=== PATIENT | female | born 1960 | race Caucasian/White ===

== ENCOUNTER 2019-08-15 13:57 | Emergency (ER) | payer OTHER ==
[~2019-08-15] VITALS: Ht 165.1 cm; Wt 67.1 kg
[~2019-08-15 13:57] MED LIST: TRAMODOL
[2019-08-15 15:00] VITALS: BP 112/73
[2019-08-15] MEDS ORDERED: KETOROLAC TROMETH 60MG/2ML VIAL IM ONE (18:45)
== END 2019-08-15 19:06 | disposition home or self-care (01) ==
LOC: ER 13:57
DX: G43.909 Migraine, unspecified, not intractable, without status migrainosus (principal)
CPT/HCPCS: 70450; 96372; 99284; J1885

== ENCOUNTER 2023-01-05 15:09 | Emergency (ER) | payer BC, MEDICAID ==
[~2023-01-05] VITALS: Ht 165.1 cm; Wt 45.0 kg
[2023-01-05 15:43] VITALS: BP 158/79
[2023-01-05] MEDS ORDERED: TRAZ1TAB12 PO (18:37)
[2023-01-05] MEDS ORDERED: VENL150C58 PO (18:37)
== END 2023-01-05 19:07 | disposition home or self-care (01) ==
LOC: ER 15:09
DX: F32.9 Major depressive disorder, single episode, unspecified (principal); F41.9 Anxiety disorder, unspecified; Z76.0 Encounter for issue of repeat prescription

== ENCOUNTER 2024-04-11 13:52 | Emergency (ER) | payer MEDICAID ==
[~2024-04-11] VITALS: Ht 165.1 cm; Wt 65.9 kg
[~2024-04-11 13:52] MED LIST changes: +TRAZ1TAB12 PO; +VENL150C58 PO
[2024-04-11 14:47] VITALS: TEMP 98; O2SAT 95
[2024-04-11] MEDS ORDERED: TETANUS-DIPTH-ACEL PERTUSSIS 0.5ML SYR Tdap IM ONE (16:00)
[2024-04-11] MEDS ORDERED: CEPH500C PO (16:04)
[2024-04-11] MEDS ORDERED: IBUP1TAB5 PO (16:04)
[2024-04-11 16:23] VITALS: BP 107/64; PULSE 80; RESP 18
[2024-04-11] MEDS: MORPHINE SULFATE 4 MG/ML SYR/VIAL IV ONE (16:23)
[2024-04-11] MEDS: cefTRIAXone SOD 1,000 MG VL IV ONE (16:24)
[2024-04-11] MEDS: KETOROLAC TROMETH 30 MG/ML 1ML VIAL IV ONE (17:00)
[2024-04-11] MEDS: BACITRACIN TOP OINT 1 UD PKG TOP ONE (17:01)
== END 2024-04-11 17:35 | disposition home or self-care (01) ==
LOC: ER 13:52
DX: L03.115 Cellulitis of right lower limb (principal); L02.611 Cutaneous abscess of right foot; F41.9 Anxiety disorder, unspecified; F32.A Depression, unspecified; Z85.3 Personal history of malignant neoplasm of breast
CPT/HCPCS: 10060; 73650; 90471; 90715; 96374; 96375; 99284; J0696; J1885; J2270

== ENCOUNTER 2024-05-15 05:16 | Emergency (ER) | payer MEDICAID ==
[~2024-05-15] VITALS: Ht 165.1 cm; Wt 64.3 kg
[~2024-05-15 05:16] MED LIST changes: +CEPH500C PO; +IBUP1TAB5 PO
[2024-05-15 06:08] LABS: Basophils # (auto) 0 10 ^3/uL (0-0.2); Basophils % (auto) 0.3 % (0.0-2.0); Eosinophils # (auto) 0.2 10 ^3/uL (0-0.8); Eosinophils % (auto) 2.5 % (0.0-7.0); Hematocrit 43.5 % (36.0-46.0); Hemoglobin 14.7 g/dL (12.2-16.2); Lymphocytes # (auto) 2.7 10 ^3/uL (0.4-5.4); Lymphocytes % (auto) 33.2 % (10.0-50.0); Mean Corpuscular Hemoglobin 30.9 pg (28.0-32.0); Mean Corpuscular Hgb Conc. 33.7 g/dL (32.0-36.0); Mean Corpuscular Volume 91.8 fL (80.0-100.0); Monocytes # (auto) 0.5 10 ^3/uL (0-1.3); Monocytes % (auto) 6.6 % (0.0-12.0); Neutrophils # (auto) 4.6 10 ^3/uL (1.6-8.6); Neutrophils % (auto) 57.4 % (37.0-80.0); Nucleated Red Blood Cells % 0.1 %; Red Blood Cells 4.74 10^6/uL (4.0-5.20); Red Cell Distribution Width 13.9 % (11.8-14.3)
[2024-05-15 06:31] LABS: Alanine Aminotransferase 19 U/L (7-40); Alkaline Phosphatase 97 U/L (46-116); Calcium 10.7 mg/dL (8.7-10.4); Carbon Dioxide 28 mmol/L (20-30); Chloride 110 mmol/L (98-107); Glucose 89 mg/dL (74-106); Potassium 3.8 mmol/L (3.5-5.1)
[2024-05-15 06:32] LABS: Albumin 4.2 g/dL (3.2-4.8); Anion Gap 2 (5-15); Aspartate Aminotransferase 14 U/L (13-40); BUN/Creatinine Ratio 22.6 (10.0-20.0); Bilirubin, Total 0.4 mg/dL (0.2-1.0); Blood Urea Nitrogen 14 mg/dL (9-23); Sodium 140 mmol/L (136-145); Total Protein 6.7 g/dL (5.7-8.2)
[2024-05-15 08:20] VITALS: BP 139/84; TEMP 98.5
[2024-05-15] MEDS: SODIUM CHLORIDE 0.9% 1,000 ML IV ONE (08:25)
[2024-05-15] MEDS: IPRATROPIUM BROM 0.5 MG/2.5ML INH SOL NEB ONE (08:31)
[2024-05-15] MEDS: ALBUTEROL SULF 2.5 MG/0.5ML(0.5%) NEB SOLN NEB ONE (08:31)
[2024-05-15 08:34] LABS: Urine Bacteria FEW /hpf (None Seen); Urine Blood Negative /uL (Negative); Urine Clarity Clear (Clear); Urine Color Yellow (Yellow); Urine Mucus FEW (None Seen); Urine Protein, UAD Negative (Negative); Urine Specific Gravity 1.024 (1.001-1.035); Urine Urobilinogen Normal (Negative); Urine WBC 1 /hpf (0 - 5)
[2024-05-15] MEDS: KETOROLAC TROMETH 30 MG/ML 1ML VIAL IV ONE (08:49)
[2024-05-15] MEDS: AZITHROMYCIN 500MG/ 250ML 250 ML IV ONE (08:50)
[2024-05-15 08:56] VITALS: PULSE 81; RESP 18; O2SAT 95
[2024-05-15] MEDS: IOHEXOL 350 MG/ML 100ML IJ ONE (09:51)
[2024-05-15] MEDS ORDERED: ALBUAER3 IN (11:47)
[2024-05-15] MEDS ORDERED: CEFD300C2 PO (11:47)
[2024-05-15] MEDS ORDERED: DICL50TA2 PO (11:48)
[2024-05-15] MEDS: cefTRIAXone 1GM/50ML D5W 50 ML IV ONE (11:56)
[2024-05-15] MEDS: cefTRIAXone SOD 1,000 MG VL IM ONE (11:59)
== END 2024-05-15 12:04 | disposition home or self-care (01) ==
LOC: ER 05:16
DX: J18.9 Pneumonia, unspecified organism (principal); R07.81 Pleurodynia; J44.1 Chronic obstructive pulmonary disease with (acute) exacerbation; N39.0 Urinary tract infection, site not specified; F17.210 Nicotine dependence, cigarettes, uncomplicated; F41.9 Anxiety disorder, unspecified; F32.A Depression, unspecified; Z90.710 Acquired absence of both cervix and uterus; Z98.51 Tubal ligation status; Z85.3 Personal history of malignant neoplasm of breast
CPT/HCPCS: 36415; 71045; 71275; 80053; 81001; 83735; 83880; 84484; 85025; 85379; 93005; 94640; 96365; 96366; 96372; 96375; 99285; J0456; J0696; J1885; J7030; J7644; Q9967

== ENCOUNTER 2025-05-11 06:18 | Emergency (ER) | payer MEDICAID ==
[~2025-05-11] VITALS: Ht 165.1 cm; Wt 71.0 kg
[~2025-05-11 06:18] MED LIST changes: +ALBUAER3 IN; +CEFD300C2 PO; +DICL50TA2 PO
--- NOTE | 2025-05-11 06:53 | ED.PDOC ---
SOB-HPI HPI Comments 64-year-old female presents with a chief complaint of cough, fatigue, and SOB x 3 days. Patient states that her cough has been productive with green mucus. Patient states that she smokes cigarettes and is diagnosed with COPD. Patient also endorses feeling fatigued as well. Patient is hypotensive and sating at 87% on room air. Chief Complaint: Shortness of Breath Time Seen by MD: 06:33 Primary Care Provider: ALWAYS Reviewed notes: Medications, Allergies Information Source: Patient Mode of Arrival: Ambulatory Severity: Moderate Timing: Days Duration: Since onset Context: At Rest PE Risk Factors: None History of: COPD Prehospital treatment: None Associated Signs and Symptoms: Wheeze, Cough If cough with SOB: Non-Productive Past Medical History PAST MEDICAL HISTORY: Anxiety, Cancer, Depression Surgical History: Hysterectomy, Tubal Ligation CNA PER DIEM History: No Pertinent CNA PER DIEM History Family History Family History: Reviewed,noncontributory to illness, No family hx of Cancer, No family hx of DM, No family hx of Heart cain, No family hx of HTN, No family hx ofKidney cain, No family hx of Liver cain, No family hx of Lung cain, No family hx of Stroke Social History Smoker: Cigarettes Alcohol: Denies ETOH Use Drugs: Other Lives In: Home Constitutional: reports: fatigue; denies: chills, diaphoresis, fever, malaise, sweats, weakness, others EENTM: denies: blurred vision, double vision, ear bleeding, ear discharge, ear drainage, ear pain, ear ringing, eye pain, eye redness, hearing loss, mouth pain, mouth swelling, nasal discharge, nose bleeding, nose congestion, nose pain, photophobia, tearing, throat pain, throat swelling, voice changes, others Respiratory: reports: cough, shortness of breath; denies: hemoptysis, orthopnea, SOB at rest, SOB with excertion, stridor, wheezing, others Cardiovascular: denies: chest pain, dizzy spells, diaphoresis, Dyspnea on exertion, edema, irregular heart beat, left arm pain, lightheadedness, pa lpitations, PND, syncope, others Gastrointestinal: denies: abdomen distended, abdominal pain, blood streaked bowels, constipated, diarrhea, dysphagia, difficulty swallowing, hematemesis, melena, nausea, poor appetite, poor fluid intake, rectal bleeding, rectal pain, vomiting, others Genitourinary: denies: abnormal vagina bleeding, burning, dyspareunia, dysuria, flank pain, frequency, hematuria, incontinence, pain, , vagina discharge, urgency, others Neurological: denies: dizziness, fainting, headache, left sided numbness, left sided weakness, numbness, paresthesia, pre-existing deficit, right sided numbness, right sided weakness, seizure, speech problems, tingling, tremors, weakness, others Musculoskeletal: denies: back pain, gout, joint pain, joint swelling, muscle pain, muscle stiffness, neck pain, others Integumetry: denies: bruises, change in color, change in hair/nails, dryness, laceration, lesions, lumps, rash, wounds, others Allergic/Immunocompromised: denies: Difficulty Healing, Frequent Infections, Hives, Itching, others Hematologic/Lymphatic: denies: anemia, blood clots, easy bleeding, easy bruising, swollen glands, others Endocrine: denies: excessive hunger, excessive sweating, excessive thirst, excessive urination, flushing, intolerance to cold, intolerance to heat, unexplained weight gain, unexplained weight loss, others Psychiatric: denies: anxiety, bipolar disorder, depression, hopeless, panic disorder, schizophrenia, sleepless, suicidal, others All Other Systems: Reviewed and Negative Physical Exam General Appearance: Moderate Distress, Normal HEENT: Normal ENT Inspection, Pharynx Normal, TMs Normal Neck: Full Range of Motion, Non-Tender, Normal, Normal Inspection Respiratory: Accessory Muscle Use, Chest Non-Tender, Wheezing Cardiovascular: No Edema, No JVD, No Murmur, No Gallop, Normal Peripheral Pulses, Regular Rate/Rhythm Breast Exam: Deferred Gastrointestinal: No Organomegaly, Non Tender, No Pulsatile Mass, Normal Bowel Sounds, Soft Genitalia: Deferred Pelvic: Deferred Rectal: Deferred Extremities: No calf tenderness, Normal capillary refill, Normal inspection, Normal range of motion, Non-tender, No pedal edema Musculoskeletal : Apperance: Normal Neurologic: Alert, ear nose throat surgeon II-XII nml as Tested, No Motor Deficits, Normal Affect, Normal Mood, No Sensory Deficits Cerebellar Function: NOT DONE Reflexes: NOT DONE Skin: Dry, Normal Color, Warm Peripheral Pulses: 3+ Radial (R), 3+ Radial (L) Lymphatic: No Adenopathy Was a procedure done? Was a procedure done?: No Differential Dx Differential Diagnosis: Anxiety, Asthma, Bronchitis, CHF, COPD X-Ray, Labs, Meds, VS Vital Signs Date Time Temp Pulse Resp B/P (MAP) Pulse Ox O2 Delivery O2 Flow Rate FiO2 05/11/25 06:36 97.8 83 20 94/68 (77) 88 97.8 Lab Test 05/11/25 06:43 Range/Units White Blood Count 17.2 H 4.4-10.8 10^3/uL Red Blood Count 4.55 4.0-5.20 10^6/uL Hemoglobin 14.8 12.2-16.2 g/dL Hematocrit 42.7 36.0-46.0 % Mean Corpuscular Volume 93.8 80.0-100.0 fL Mean Corpuscular Hemoglobin 32.5 H 28.0-32.0 pg Mean Corpuscular Hemoglobin Concent 34.6 32.0-36.0 g/dL Red Cell Distribution Width 12.5 11.8-14.3 % Platelet Count 243 140-450 10^3/uL Mean Platelet Volume 7.9 6.9-10.8 fL Neutrophils (%) (Auto) 81.5 H 37.0-80.0 % Lymphocytes (%) (Auto) 11.4 10.0-50.0 % Monocytes (%) (Auto) 6.1 0.0-12.0 % Eosinophils (%) (Auto) 0.5 0.0-7.0 % Basophils (%) (Auto) 0.5 0.0-2.0 % Neutrophils # (Auto) 14.0 H 1.6-8.6 10 ^3/uL Lymphocytes # (Auto) 2.0 0.4-5.4 10 ^3/uL Monocytes # (Auto) 1.1 0-1.3 10 ^3/uL Eosinophils # (Auto) 0.1 0-0.8 10 ^3/uL Basophils # (Auto) 0.1 0-0.2 10 ^3/uL Nucleated Red Blood Cells 0.1 % Sodium Level Pending Potassium Level Pending Chloride Level Pending Carbon Dioxide Level Pending Anion Gap Pending Blood Urea Nitrogen Pending Creatinine Pending Glomerular Filtration Rate Calc Pending BUN/Creatinine Ratio Pending Serum Glucose Pending Calcium Level Pending Troponin I High Sensitivity Pending Current Medications Medications (Trade) Dose Ordered Sig/Mil Route Start Time Stop Time Status Last Admin Methylprednisolone Sodium Succinate (Solu Medrol) 125 mg ONCE ONCE IV 05/11/25 06:45 05/11/25 06:46 DC 05/11/25 06:59 Albuterol (Ventolin Medneb) 5 mg ONCE ONCE NEB 05/11/25 06:45 05/11/25 06:46 DC 05/11/25 06:54 Ipratropium [place] (Atrovent Medneb) 0.5 mg ONCE ONCE NEB 05/11/25 06:45 05/11/25 06:46 DC 05/11/25 06:54 Magnesium Sulfate/ Dextrose 100 ml @ 100 mls/hr ONCE ONCE IV 05/11/25 06:45 05/11/25 07:44 05/11/25 06:58 Patient alert. Complaining of shortness a breath. Vitals stable. Answering questions. Was given steroid. Was given breathing treatment. WBC elevated pain Hemoglobin within normal limits. Hypotensive. Possible sepsis. Establish intravenous access. Was given fluids. Was given Rocephin. Was given azithromycin. Sepsis protocol. Time of 1ST Reevaluation: 07:03 Reevaluation 1ST: Unchanged Patient Education/Counseling: Diagnosis, Treatment, Prognosis Family Education/Counseling: No Family Present SEPSIS Sepsis Screen Date sepsis recognized/suspect: May 11, 2025 Time Sepsis recognized/suspect: 620 Recent Procedure: No On Antibiotic Therapy: No Respiratory Rate >20: No Heart Rate >90: No Temp<36 C (96.8 F) or >38.3 C: No SBP <90 or MAP <65 mmHG: No New Acute Mental Status Change: No Is the patient on CPAP, BIPAP,: No Physician Orders Troponin-I Hs (05/11/25 06:34) Chest Portable (05/11/25 06:34) Urinalysis (05/11/25 06:34) Basic Metabolic Panel (05/11/25 06:34) Magnesium Sulfate 1gm/100ml (05/11/25 06:45) Vital Signs Date Time Temp Pulse Resp B/P (MAP) Pulse Ox O2 Delivery O2 Flow Rate FiO2 05/11/25 06:36 97.8 83 20 94/68 (77) 88 97.8 Laboratory Tests Test 05/11/25 06:43 White Blood Count 17.2 10^3/uL (4.4-10.8) H Medications Medications Dose Ordered Sig/Mil Route Start Time Stop Time Status Last Admin Dose Admin Albuterol 5 mg ONCE ONCE NEB 05/11/25 06:45 05/11/25 06:46 DC 05/11/25 06:54 Ipratropium [place] 0.5 mg ONCE ONCE NEB 05/11/25 06:45 05/11/25 06:46 DC 05/11/25 06:54 Magnesium Sulfate/ Dextrose 100 ml @ 100 mls/hr ONCE ONCE IV 05/11/25 06:45 05/11/25 07:44 05/11/25 06:58 Methylprednisolone Sodium Succinate 125 mg ONCE ONCE IV 05/11/25 06:45 05/11/25 06:46 DC 05/11/25 06:59 Departure 1 Departure Time of Disposition: 07:16 Impression: Primary Impression: Acute respiratory failure Qualified Codes: J96.01 - Acute respiratory failure with hypoxia Additional Impression: Pneumonitis Disposition: ADMITTED INPATIENT Admit to: Med Surg Condition: Guarded Critical Care Note Critical Care Time?: Yes (90 min-critical care time only) Critical care comment: Placed on oxygen Stability Stability form required: No Heart Score Heart Score: Heart Score Response (Comments) Value History N/A 0 EKG N/A 0 Age N/A 0 Risk Factors N/A 0 Troponin N/A 0 Total 0 I personally scribed for EDWARD YOO MD ([email or web address]) on 05/11/25 at 06:53. Electronically submitted by Serafin Aldridge ([email or web address]). EDWARD YOO MD May 11, 2025 06:53
[2025-05-11] MEDS: IPRATROPIUM BROM 0.5 MG/2.5ML INH SOL NEB ONE (06:54)
[2025-05-11] MEDS: ALBUTEROL SULF 2.5 MG/0.5ML(0.5%) NEB SOLN NEB ONE (06:54)
[2025-05-11] MEDS: MAGNESIUM SULFATE 1GM/100ML 100 ML IV ONE (06:58)
[2025-05-11] MEDS: methylPREDNISolone SOD SUCC 125 MG/2 ML VL IV ONE (06:59)
[2025-05-11 07:04] LABS: Basophils # (auto) 0.1 10 ^3/uL (0-0.2); Basophils % (auto) 0.5 % (0.0-2.0); Eosinophils # (auto) 0.1 10 ^3/uL (0-0.8); Eosinophils % (auto) 0.5 % (0.0-7.0); Hematocrit 42.7 % (36.0-46.0); Hemoglobin 14.8 g/dL (12.2-16.2); Lymphocytes % (auto) 11.4 % (10.0-50.0); Mean Corpuscular Hemoglobin 32.5 pg (28.0-32.0); Mean Corpuscular Hgb Conc. 34.6 g/dL (32.0-36.0); Mean Corpuscular Volume 93.8 fL (80.0-100.0); Monocytes # (auto) 1.1 10 ^3/uL (0-1.3); Monocytes % (auto) 6.1 % (0.0-12.0); Neutrophils % (auto) 81.5 % (37.0-80.0); Nucleated Red Blood Cells % 0.1 %; Platelet Count (auto) 243 10^3/uL (140-450); Red Blood Cells 4.55 10^6/uL (4.0-5.20); Red Cell Distribution Width 12.5 % (11.8-14.3); White Blood Cell 17.2 10^3/uL (4.4-10.8)
[2025-05-11 07:15] LABS: Chloride 103 mmol/L (98-107); Sodium 136 mmol/L (136-145)
[2025-05-11 07:16] LABS: Anion Gap 5 (5-15); Carbon Dioxide 28 mmol/L (20-31)
[2025-05-11 07:18] LABS: Calcium 10.9 mg/dL (8.7-10.4)
[2025-05-11 07:21] LABS: BUN/Creatinine Ratio 14.1 (10.0-20.0); Blood Urea Nitrogen 9 mg/dL (9-23); Glucose 99 mg/dL (74-106)
[2025-05-11] MEDS: cefTRIAXone 1GM/50ML D5W 50 ML IV ONE (07:30)
[2025-05-11] MEDS ORDERED: SODIUM CHLORIDE 0.9% 1,000 ML IV ONE ×2 (07:30)
--- NOTE | 2025-05-11 07:58 | DVH ---
CHEST RADIOGRAPH Indication: sob Technique: Single frontal view of the chest was obtained COMPARISON: XY CHEST PORTABLE on DOS: 05/15/24 FINDINGS: Lines and Tubes: None Lungs: Increased interstitial prominence. Patchy opacities in the right lower lobe. Pleura: No effusion. No pneumothorax. Cardiomediastinal contours: Unremarkable Bones: Unremarkable IMPRESSION: Pulmonary vascular congestion with possible developing pneumonia in the right lower lobe.
--- NOTE | 2025-05-11 08:10 | DVHINCON2 ---
Date Seen: May 11, 2025 Reason for Consultation Shortness of breath with fatigue, cough, and productive phlegm x3 days History of Present Illness Layla Fleming is a 64-year-old female with past medical history of COPD, anxiety, breast cancer, depression, right lumpectomy, hysterectomy, and tubal ligation who presents to the ED with shortness of breath, fatigue, and productive cough with green phlegm x3 days. Patient reports that she does not use oxygen at home but upon examination patient is currently on 2 L nasal cannula. Patient also states that she drinks occasionally, smokes 1 pack of cigarettes per day, and denies illicit drug use. Patient denies any recent trauma or injury, recent sick contacts, recent travels, recent ingestion of spoiled food, fever, chills, lightheadedness, weakness, dizziness, chest pain, abdominal pain, nausea, vomiting, diarrhea, or urinary symptoms. Upon examination patient states that she wants to leave against medical advice she does not want to stay. Did explain risks and benefits and she still insisted on leaving against medical advice. Patient states that she just wants to lay down in bed. Allergies: Coded Allergies: NO KNOWN ALLERGIES (Unverified , 08/15/19) Home Meds Active Scripts Diclofenac Potassium (Diclofenac Potassium) 50 Mg Tab, 1 TAB PO TIDP for 10 Days, #30 TAB Prov:NEVA SANON MD 05/15/24 Albuterol Sulfate (VENTOLIN MDI) 90 Mcg Ih, 90 MCG IN TID for 15 Days, #1 INH Prov:NEVA SANON MD 05/15/24 Cefdinir (Cefdinir) 300 Mg Cap, 1 CAP PO BID for 10 Days, #20 CAP Prov:NEVA SANON MD 05/15/24 Ibuprofen Micronized (Ibuprofen) 600 Mg Tab, 600 MG PO Q6HPRN PRN for 5 Days, #20 TAB Prov:SILVIA POOLE NP 04/11/24 Cephalexin Monohydrate (Cephalexin) 500 Mg Cap, 1 CAP PO QID for 10 Days, #40 CAP Prov:SILVIA POOLE HUM[employer] FACTORS SPECIALIST 04/11/24 Trazodone Hcl (Trazodone Hcl) 150 Mg Tab, 1 TAB PO QPM, #30 TAB 1 Refill Prov:BILL AUGUSTIN 01/05/23 Venlafaxine Hcl (Venlafaxine Hcl Er) 150 Mg Cap, 1 CAP PO DAILY, #30 CAP 1 Refill Prov:BILL AUGUSTIN [employer]IRY DEPARTMENT MANAGER 01/05/23 Reported Medications [Tramodol] No Conflict Check 05/10/10 Vital Signs Vital Signs Date Time Temp Pulse Resp B/P (MAP) Pulse Ox O2 Delivery O2 Flow Rate FiO2 05/11/25 07:52 98.5 82 18 108/69 (82) 96 98.5 05/11/25 07:52 Room Air Labs/Diagnostic Data Labs Test 05/11/25 06:43 Range/Units White Blood Count 17.2 H 4.4-10.8 10^3/uL Red Blood Count 4.55 4.0-5.20 10^6/uL Hemoglobin 14.8 12.2-16.2 g/dL Hematocrit 42.7 36.0-46.0 % Mean Corpuscular Volume 93.8 80.0-100.0 fL Mean Corpuscular Hemoglobin 32.5 H 28.0-32.0 pg Mean Corpuscular Hemoglobin Concent 34.6 32.0-36.0 g/dL Red Cell Distribution Width 12.5 11.8-14.3 % Platelet Count 243 140-450 10^3/uL Mean Platelet Volume 7.9 6.9-10.8 fL Neutrophils (%) (Auto) 81.5 H 37.0-80.0 % Lymphocytes (%) (Auto) 11.4 10.0-50.0 % Monocytes (%) (Auto) 6.1 0.0-12.0 % Eosinophils (%) (Auto) 0.5 0.0-7.0 % Basophils (%) (Auto) 0.5 0.0-2.0 % Neutrophils # (Auto) 14.0 H 1.6-8.6 10 ^3/uL Lymphocytes # (Auto) 2.0 0.4-5.4 10 ^3/uL Monocytes # (Auto) 1.1 0-1.3 10 ^3/uL Eosinophils # (Auto) 0.1 0-0.8 10 ^3/uL Basophils # (Auto) 0.1 0-0.2 10 ^3/uL Nucleated Red Blood Cells 0.1 % Sodium Level 136 136-145 mmol/L Potassium Level 4.0 3.5-5.1 mmol/L Chloride Level 103 98-107 mmol/L Carbon Dioxide Level 28 20-31 mmol/L Anion Gap 5 5-15 Blood Urea Nitrogen 9 9-23 mg/dL Creatinine 0.64 0.550-1.02 mg/dL Glomerular Filtration Rate Calc 100 >90 mL/min BUN/Creatinine Ratio 14.1 10.0-20.0 Serum Glucose 99 74-106 mg/dL Calcium Level 10.9 H 8.7-10.4 mg/dL Troponin I High Sensitivity 6 </=34 ng/L Assessment Assessment Acute hypoxic respiratory failure Leukocytosis likely due to sepsis Acute on chronic COPD exacerbation requiring supplemental oxygen Tobacco use Alcohol use History of anxiety History of breast cancer History of depression History of right lumpectomy History of hysterectomy History of tubal ligation Plan UA Duo nebs NS 2 L Supportive oxygen ED started IV antibiotics-ceftriaxone + azithromycin Mag level IV steroids Lactic level Blood cultures Chest x-ray Troponin Counseled patient on cessation of tobacco and alcohol use Patient leaving against medical advice. Plan discussed with: Patient Date of Service: May 11, 2025 Billing Provider: ELMA BRAR Common Visit Codes: [id number] INP/OBS CARE (HIGH) ELMA BRAR May 11, 2025 08:10
[2025-05-11] MEDS ORDERED: ACETAMINOPHEN 325 MG TAB PO PRN (08:15)
[2025-05-11] MEDS ORDERED: ONDANSETRON HCL 4 MG/2 ML VIAL IV PRN (08:15)
[2025-05-11] MEDS: AZITHROMYCIN 500MG/ 250ML 250 ML IV ONE (08:26)
[2025-05-11 08:27] VITALS: PULSE 84; RESP 19; O2SAT 94
[2025-05-11 08:49] VITALS: BP 108/69; PULSE 84; RESP 20; TEMP 98.5; O2SAT 94
[2025-05-11] MEDS ORDERED: cefTRIAXone 1GM/50ML D5W 50 ML IV SCH (09:00)
[2025-05-11] MEDS ORDERED: methylPREDNISolone SOD SUCC 125 MG/2 ML VL IV SCH (10:00)
[2025-05-11] MEDS ORDERED: AZITHROMYCIN 500MG/ 250ML 250 ML IV SCH (10:00)
[2025-05-11] MEDS ORDERED: IPRATROPIUM BROM 0.5 MG/2.5ML INH SOL NEB SCH (10:00)
[2025-05-11] MEDS ORDERED: ENOXAPARIN SOD 40 MG/0.4 ML SYRINGE SC SCH (10:00)
[2025-05-11] MEDS ORDERED: ALBUTEROL SULF 2.5 MG/0.5ML(0.5%) NEB SOLN NEB SCH (10:00)
== END 2025-05-11 08:29 | disposition left against medical advice (07) ==
LOC: ER 06:18
DX: J96.00 Acute respiratory failure, unspecified whether with hypoxia or hypercapnia (principal); J98.4 Other disorders of lung; F17.210 Nicotine dependence, cigarettes, uncomplicated; F41.9 Anxiety disorder, unspecified; F32.A Depression, unspecified; Z90.710 Acquired absence of both cervix and uterus; Z85.3 Personal history of malignant neoplasm of breast; Z79.899 Other long term (current) drug therapy; Z98.51 Tubal ligation status
CPT/HCPCS: 36415; 71045; 80048; 83605; 84484; 85025; 87040; 94640; 96365; 96375; 99291; 99292; J2919; J3475